=== PATIENT | female | born 1960 | race Caucasian/White ===

== ENCOUNTER 2021-07-28 16:42 | Inpatient (IN) ==
[2021-07-28] MEDS ORDERED: DEXAMETHASONE 4 MG/1 ML VIAL IV STA (17:16)
[2021-07-28] MEDS ORDERED: ONDANSETRON 4 MG/2 ML VIAL IV ONE (17:16)
[2021-07-28] MEDS ORDERED: SODIUM CHLORIDE 0.9% 1,000 ML IV STA (17:16)
[2021-07-28 18:33] LABS: Basophils % 0.3 % (0.0-0.8); Eosinophils % 0.1 % (0.00-10.9); Hemoglobin 13.4 GM/DL (12.0-16.0); Immature Granulocytes % 1.3 %; Immature Granulocytes Absolute 0.09 #; Lymphocytes # 1.3 10*3/uL (1.4-4.0); Mean Corpuscular HGB Conc 32.7 GM/DL (32-36); Mean Platelet Volume 9.4 FL (9.6-12.0); Monocytes % 11.4 % (1.7-12.7); Neutrophils % 68.9 % (38.7-73.9); Platelet Count 365 T/CUMM (130-400); Red Blood Count 4.71 MC/CUMM (3.8-5.5); White Blood Count 7.1 T/CUMM (4-12)
[2021-07-28 18:57] LABS: Albumin 3.1 G/DL (3.4-5.0); Bilirubin,Total 0.5 MG/DL (0.20-1.00); Calcium 8.3 MG/DL (8.5-10.1); Osmolality,Calculated 276.8 MOS/KG (273-304); Potassium 3.6 MMOL/L (3.5-5.1); Total Protein 7.5 G/DL (6.4-8.2)
[2021-07-28 19:09] LABS: PT Patient Result 11.4 SECS (10.5-12.0)
[2021-07-28] MEDS ORDERED: cefTRIAXone 1,000 MG in SODIUM CHLORIDE 0.9% 100 ML IV STA (19:15)
[2021-07-28] MEDS ORDERED: AZITHROMYCIN INJ 500 MG in SODIUM CHLORIDE 0.9% 250 ML IV STA (19:15)
[2021-07-28] MEDS ORDERED: ACETAMINOPHEN 325 MG TABLET PO PRN (19:23)
[2021-07-28] MEDS ORDERED: GLUCAGON 1 MG VIAL IM PRN (19:23)
[2021-07-28] MEDS ORDERED: ONDANSETRON 4 MG/2 ML VIAL IV PRN (19:23)
[2021-07-28] MEDS ORDERED: DEXTROSE 50% 25 GM/50 ML SYRINGE IV PRN (19:43)
[2021-07-28] MEDS ORDERED: ESCITALOPRAM 10 MG TABLET PO SCH (21:00)
[2021-07-28] MEDS ORDERED: REMDESIVIR 200 MG in SODIUM CHLORIDE 0.9% 210 ML IV ONE (21:00)
[2021-07-28] MEDS ORDERED: ENOXAPARIN 40 MG/0.4 ML SYRINGE SUBCUT SCH (21:00)
[2021-07-28] MEDS: BUDESONIDE/FORMOTEROL 160-4.5 INHALER 6 GM INH SCH (21:57)
[2021-07-28] MEDS: ENOXAPARIN 40 MG/0.4 ML SYRINGE SUBCUT SCH (21:57)
[2021-07-28] MEDS: INSULIN REGULAR 100 UNIT/ML SUBCUT SCH (22:14)
[2021-07-28] MEDS: ASCORBIC ACID 500 MG TABLET PO SCH (23:15)
[2021-07-28] MEDS: SODIUM CHLORIDE 0.45% 1,000 ML IV SCH (23:15)
[2021-07-29 05:28] LABS: Basophils % 0.4 % (0.0-0.8); Hematocrit 40.5 VOL% (35.7-47.0); Hemoglobin 12.9 GM/DL (12.0-16.0); Immature Granulocytes % 2.9 %; Immature Granulocytes Absolute 0.13 #; Lymphocytes # 1.2 10*3/uL (1.4-4.0); Lymphocytes % 27.3 % (21.3-54.2); Mean Corpuscular HGB Conc 31.9 GM/DL (32-36); Mean Corpuscular Volume 88.6 FL (87-102); Mean Platelet Volume 9.1 FL (9.6-12.0); Monocytes % 6.2 % (1.7-12.7); Neutrophils % 63.2 % (38.7-73.9); Platelet Count 334 T/CUMM (130-400); Red Blood Count 4.57 MC/CUMM (3.8-5.5); Red Cell Distribution Width 13.1 % (9.3-17.3); White Blood Count 4.5 T/CUMM (4-12)
[2021-07-29 05:55] LABS: Platelet Estimate Normal
[2021-07-29 05:56] LABS: Ferritin 290.6 ng/mL (8-252)
[2021-07-29 06:40] LABS: Albumin 2.9 G/DL (3.4-5.0); Bilirubin,Total 0.4 MG/DL (0.20-1.00); Calcium 8.2 MG/DL (8.5-10.1); Osmolality,Calculated 282.5 MOS/KG (273-304); Potassium 3.5 MMOL/L (3.5-5.1); Total Protein 7.9 G/DL (6.4-8.2)
[2021-07-29] MEDS: INSULIN REGULAR 100 UNIT/ML SUBCUT SCH ×4 (07:21→21:01)
[2021-07-29] MEDS ORDERED: PANTOPRAZOLE 40 MG TABLET PO SCH (09:00)
[2021-07-29] MEDS: ASCORBIC ACID 500 MG TABLET PO SCH ×2 (09:11→21:10)
[2021-07-29] MEDS: ZINC GLUCONATE 50 MG TABLET PO SCH (09:11)
[2021-07-29] MEDS: CHOLECALCIFEROL 1,000 UNIT TABLET PO SCH (09:11)
[2021-07-29] MEDS: DEXAMETHASONE 4 MG/1 ML VIAL IV SCH (09:12)
[2021-07-29] MEDS: ENOXAPARIN 40 MG/0.4 ML SYRINGE SUBCUT SCH ×2 (09:15→21:10)
[2021-07-29] MEDS: REMDESIVIR 100 MG in SODIUM CHLORIDE 0.9% 100 ML IV SCH (09:18)
[2021-07-29] MEDS: LEVOFLOXACIN INJ 750 MG/150 ML PREMIX IV SCH (09:24)
[2021-07-29] MEDS: BUDESONIDE/FORMOTEROL 160-4.5 INHALER 6 GM INH SCH ×2 (09:26→21:10)
[2021-07-29] MEDS ORDERED: DEXTROSE 10% 25 GM/250 ML BAG IV PRN (09:50)
[2021-07-29] MEDS: SODIUM CHLORIDE 0.45% 1,000 ML IV SCH ×2 (10:58→18:42)
[2021-07-29] MEDS: NYSTATIN CREAM 15 GM TUBE TOP SCH ×2 (12:43→21:10)
[2021-07-29] MEDS: amLODIPine 10 MG TABLET PO SCH (13:16)
[2021-07-29] MEDS: ESCITALOPRAM 10 MG TABLET PO SCH (13:16)
[2021-07-29] MEDS: LOSARTAN/HCTZ 50-12.5 MG TABLET PO SCH (13:28)
[2021-07-29] MEDS ORDERED: METOPROLOL SUCCINATE XL 50 MG TABLET PO SCH (17:00)
[2021-07-29] MEDS ORDERED: risperiDONE 1 MG TABLET PO SCH (17:00)
[2021-07-29] MEDS ORDERED: lamoTRIgine 100 MG TABLET PO SCH (17:00)
[2021-07-29] MEDS: FAMOTIDINE 20 MG TABLET PO SCH (21:10)
[2021-07-29] MEDS: ALPRAZolam 0.5 MG TABLET PO PRN (21:44)
[2021-07-30] MEDS: ALPRAZolam 0.5 MG TABLET PO PRN ×2 (03:34→13:25)
[2021-07-30] MEDS: SODIUM CHLORIDE 0.45% 1,000 ML IV SCH ×2 (05:47→05:48)
[2021-07-30 06:15] LABS: Basophils % 0.2 % (0.0-0.8); Eosinophils % 0.2 % (0.00-10.9); Hemoglobin 12.1 GM/DL (12.0-16.0); Immature Granulocytes % 1.7 %; Immature Granulocytes Absolute 0.11 #; Lymphocytes % 32.2 % (21.3-54.2); Mean Corpuscular HGB Conc 31.8 GM/DL (32-36); Mean Corpuscular Volume 87.6 FL (87-102); Mean Platelet Volume 8.9 FL (9.6-12.0); Neutrophils % 49.7 % (38.7-73.9); Platelet Count 376 T/CUMM (130-400); Red Blood Count 4.34 MC/CUMM (3.8-5.5); Red Cell Distribution Width 13.1 % (9.3-17.3); White Blood Count 6.3 T/CUMM (4-12)
[2021-07-30 06:35] LABS: Ferritin 255.2 ng/mL (8-252); Lymphocytes 25 % (20-55); Platelet Estimate Adequate; Segmented Neutrophils 56 % (50-85); Total Cells Counted 100
[2021-07-30 06:36] LABS: Albumin 2.9 G/DL (3.4-5.0); Bilirubin,Total 0.6 MG/DL (0.20-1.00); Calcium 8.5 MG/DL (8.5-10.1); Hypochromia 1+; Microcytosis 1+; Osmolality,Calculated 277.5 MOS/KG (273-304); Potassium 2.9 MMOL/L (3.5-5.1); Total Protein 7.2 G/DL (6.4-8.2)
[2021-07-30 06:37] LABS: Risk Ratio 3.44; VLDL Cholesterol 15.4 MG/DL
[2021-07-30] MEDS ORDERED: POTASSIUM CHLORIDE 20 MEQ TABLET PO ONE (07:36)
[2021-07-30] MEDS: INSULIN REGULAR 100 UNIT/ML SUBCUT SCH ×2 (08:34→11:50)
[2021-07-30] MEDS: LOSARTAN/HCTZ 50-12.5 MG TABLET PO SCH (10:53)
[2021-07-30] MEDS: LEVOFLOXACIN INJ 750 MG/150 ML PREMIX IV SCH (10:53)
[2021-07-30] MEDS: DEXAMETHASONE 4 MG/1 ML VIAL IV SCH (10:53)
[2021-07-30] MEDS: ENOXAPARIN 40 MG/0.4 ML SYRINGE SUBCUT SCH (10:54)
[2021-07-30] MEDS: amLODIPine 10 MG TABLET PO SCH (10:54)
[2021-07-30] MEDS: BUDESONIDE/FORMOTEROL 160-4.5 INHALER 6 GM INH SCH (10:54)
[2021-07-30] MEDS: ESCITALOPRAM 10 MG TABLET PO SCH (10:54)
[2021-07-30] MEDS: FAMOTIDINE 20 MG TABLET PO SCH (10:54)
[2021-07-30] MEDS: NYSTATIN CREAM 15 GM TUBE TOP SCH (10:54)
[2021-07-30] MEDS: ZINC GLUCONATE 50 MG TABLET PO SCH (10:55)
[2021-07-30] MEDS: ASCORBIC ACID 500 MG TABLET PO SCH (10:55)
[2021-07-30] MEDS: CHOLECALCIFEROL 1,000 UNIT TABLET PO SCH (10:55)
[2021-07-30 12:25] VITALS: BP 145/109
[2021-07-30] MEDS: REMDESIVIR 100 MG in SODIUM CHLORIDE 0.9% 100 ML IV SCH (14:21)
== END 2021-07-30 15:45 | disposition home health service (06) | DRG 177 ==
LOC: EDBD → EDUNIT# → N.ED 16:42 → SUATTDRO 19:23 → N.EDINP 19:23 → N.3E 07-30 02:11
PROVIDERS: ADMIT Internal Medicine; ATTEND Internal Medicine